=== PATIENT | female | born 1940 | race Two or more races ===

== ENCOUNTER 2019-11-15 18:02 | Inpatient (IN) | payer OTHER ==
[~2019-11-15] VITALS: Ht 152.4 cm; Wt 49.0 kg
[~2019-11-15 18:02] MED LIST: CEFDINIR300 MG PO; CLONAZEPAM 1MG TAB PO; CLONAZEPAM0.5 MG PO; COZAAR PO; EFFEXOR XR150 MG; INTESTINEX680 MG PO; LEVOXYL50 MCG; PRILOSEC10 M2; PROTONIX40 MG PO; REFRESH TEARS15 ML OP; SEROQUEL200 MG; SERTRALINE HCL50 MG PO; SYNTHROID50 MCG; Synthroid PO; TIMOLOL MALEATE5 M1 OP; XANAX2 MG; XARELTO15 MG PO; ZOCOR20 MG; ZOCOR20 MG PO
[2019-11-15] MEDS ORDERED: WELLBUTRIN SR150 MG PO (18:16)
[2019-11-15] MEDS ORDERED: SEROQUEL XR150 MG (18:16)
[2019-11-15] MEDS ORDERED: CLONAZEPAM2 MG PO (18:17)
[2019-11-15] MEDS ORDERED: ESTAZOLAM2 MG PO (18:17)
[2019-11-17] MEDS ORDERED: LEVOTHYROXINE25 MCG PO (13:44)
[2019-11-17] MEDS ORDERED: CARAFATE1 GM PO (13:45)
[2019-11-17] MEDS ORDERED: PROTONIX40 MG PO (13:45)
[2019-11-17] MEDS ORDERED: PEPCID AC20 MG PO (13:45)
[2019-11-17] MEDS ORDERED: WELLBUTRIN XL150 M1 PO (13:46)
== END 2019-11-17 16:22 | disposition home or self-care (01) | DRG 195 ==
LOC: ER 18:02 → SURH 21:21 → MEDI 21:21 → SEC-K 21:21 → SURH 22:56 → MEDI 11-16 12:34 → SURH 11-16 17:30
PROVIDERS: ADMIT Internal Medicine; ATTEND Internal Medicine
PROC: 3E0F7GC Introduction of Other Therapeutic Substance into Respiratory Tract, Via Natural or Artificial Opening (ICD-10-PCS; 2019-11-15)
PROC: BW40ZZZ Ultrasonography of Abdomen (ICD-10-PCS; principal; 2019-11-16)
PROC: B54DZZZ Ultrasonography of Bilateral Lower Extremity Veins (ICD-10-PCS; 2019-11-16)
PROC: 4A033R1 Measurement of Arterial Saturation, Peripheral, Percutaneous Approach (ICD-10-PCS; 2019-11-16)
DX: J10.1 Influenza due to other identified influenza virus with other respiratory manifestations (principal); J47.0 Bronchiectasis with acute lower respiratory infection; F32.9 Major depressive disorder, single episode, unspecified; N28.1 Cyst of kidney, acquired

== ENCOUNTER 2022-08-09 14:02 | Inpatient (IN) | payer OTHER ==
[~2022-08-09] VITALS: Ht 154.9 cm; Wt 59.0 kg
[~2022-08-09 14:02] MED LIST changes: +CARAFATE1 GM PO; +CLONAZEPAM2 MG PO; +ESTAZOLAM2 MG PO; +LEVOTHYROXINE25 MCG PO; +PEPCID AC20 MG PO; +SEROQUEL XR150 MG; +WELLBUTRIN SR150 MG PO; +WELLBUTRIN XL150 M1 PO
[2022-08-09] MEDS ORDERED: PLAVIX75 MG (14:29)
[2022-08-09] MEDS ORDERED: ISOSORBIDE MONO30 MG (14:30)
== END 2022-08-14 19:28 | disposition home or self-care (01) | DRG 690 ==
LOC: ER 14:02 → MEDI 21:18
PROVIDERS: ADMIT Internal Medicine; ATTEND Internal Medicine
PROC: BW21YZZ Computerized Tomography (CT Scan) of Abdomen and Pelvis using Other Contrast (ICD-10-PCS; principal; 2022-08-09)
PROC: B020ZZZ Computerized Tomography (CT Scan) of Brain (ICD-10-PCS; 2022-08-09)
PROC: 3E0F7SF Introduction of Other Gas into Respiratory Tract, Via Natural or Artificial Opening (ICD-10-PCS; 2022-08-09)
DX: N39.0 Urinary tract infection, site not specified (principal); N17.8 Other acute kidney failure; R53.1 Weakness; R55 Syncope and collapse; B96.20 Unspecified Escherichia coli [E. coli] as the cause of diseases classified elsewhere; E03.9 Hypothyroidism, unspecified; I10 Essential (primary) hypertension; E11.9 Type 2 diabetes mellitus without complications; Z20.822 Contact with and (suspected) exposure to COVID-19; Z79.4 Long term (current) use of insulin

== ENCOUNTER 2022-12-01 18:43 | Inpatient (IN) | payer OTHER ==
[~2022-12-01] VITALS: Ht 154.9 cm; Wt 49.9 kg
[~2022-12-01 18:43] MED LIST changes: +ISOSORBIDE MONO30 MG; +PLAVIX75 MG
== END 2022-12-09 16:38 | disposition home or self-care (01) | DRG 372 ==
LOC: ER 18:43 → MEDI 12-02 16:40
PROVIDERS: ADMIT Internal Medicine; ATTEND Internal Medicine
PROC: BW28ZZZ Computerized Tomography (CT Scan) of Head (ICD-10-PCS; principal; 2022-12-02)
DX: A04.72 Enterocolitis due to Clostridium difficile, not specified as recurrent (principal); K92.2 Gastrointestinal hemorrhage, unspecified; N39.0 Urinary tract infection, site not specified; N17.9 Acute kidney failure, unspecified; E03.9 Hypothyroidism, unspecified; I10 Essential (primary) hypertension; F32.89 Other specified depressive episodes; F03.90 Unspecified dementia, unspecified severity, without behavioral disturbance, psychotic disturbance, mood disturbance, and anxiety